=== PATIENT | female | born 1945 | race Caucasian/White ===

== ENCOUNTER 2016-10-16 13:19 | Inpatient (IN) | payer MEDICARE, MEDICAID ==
[2016-10-16] MEDS ORDERED: NORMAL SALINE 1000 ML 500 ML IV ONE (14:13)
--- NOTE | 2016-10-16 14:13 | ER Document Report ---
ED Respiratory Problem - General Mode of Arrival: Medic Information source: Patient TRAVEL OUTSIDE OF THE [place] IN LAST 30 DAYS: No - HPI Patient complains to provider of: Other - Difficulty breathing Associated symptoms: Other - See above <JESSIE GONZALES - Last Filed: 10/16/16 14:47> <HEBERTALIA SIDDIQI FORREST - Last Filed: 10/16/16 19:46> - General Chief Complaint: Breathing Difficulty Stated Complaint: DIFFICULTY BREATHING Notes: Patient is a 71 year old female, with a past medical history including A-fib and asthma, who presents to the emergency department via EMS complaining of trouble breathing onset today. Patient reports that she believes she has had fluid buildup which is causing her problem. Patient states she has been taking water pills regularly. Patient states that she had eaten less than normal yesterday, lots of water, and denies excess salt. Patient states she is not on home air. Patient denies fever. (JESSIE GONZALES) - Related Data Allergies/Adverse Reactions: No Known Allergies Allergy (Verified 10/09/14 09:34) Past Medical History - General Information source: Patient - Social History Smoking Status: Unknown if Ever Smoked Family History: Reviewed & Not Pertinent, DM, Hypertension, Other - a-fib - Past Medical History Cardiac Medical History: Reports: Hx Atrial Fibrillation, Hx Congestive Heart Failure, Hx Hypercholesterolemia, Hx Hypertension Pulmonary Medical History: Reports: Hx Asthma, Hx COPD Endocrine Medical History: Reports: Hx Diabetes Mellitus Type 2, Hx Hypothyroidism GI Medical History: Reports: Hx Gastroesophageal Reflux Disease, Hx Hiatal Hernia Musculoskeltal Medical History: Reports Hx Arthritis Past Surgical History: Reports: Hx Hysterectomy, Hx Tonsillectomy - Immunizations Hx Diphtheria, Pertussis, Tetanus Vaccination: Yes Hx Pneumococcal Vaccination: 09/20/11 <JESSIE GONZALES - Last Filed: 10/16/16 14:47> Review of Systems - Review of Systems Constitutional: denies: Fever EENT: No symptoms reported Cardiovascular: No symptoms reported Respiratory: See HPI, Other - Difficulty breathing Gastrointestinal: No symptoms reported Genitourinary: No symptoms reported Female Genitourinary: No symptoms reported Musculoskeletal: No symptoms reported Skin: No symptoms reported Hematologic/Lymphatic: No symptoms reported Neurological/Psychological: No symptoms reported -: Yes All other systems reviewed and negative <JESSIE GONZALES - Last Filed: 10/16/16 14:47> Physical Exam - Vital signs Interpretation: Tachycardic - General General appearance: Appears well, Alert - HEENT Head: Normocephalic, Atraumatic - Respiratory Respiratory status: No respiratory distress Chest status: Nontender Breath sounds: Decreased air movement - bilaterally, Wheezing - bilaterally Chest palpation: Normal - Cardiovascular Rhythm: Irregularly irregular, Tachycardia Heart sounds: Normal auscultation Murmur: No - Abdominal Inspection: Normal Distension: No distension Bowel sounds: Normal Tenderness: Nontender Organomegaly: No organomegaly - Back Back: Normal, Nontender - Extremities General upper extremity: Normal inspection, Nontender, Normal color, Normal ROM , Normal temperature General lower extremity: Normal inspection, Nontender, Normal color, Normal ROM , Normal temperature - Neurological Neuro grossly intact: Yes Cognition: Normal Orientation: AAOx4 Teresa Coma Scale Eye Opening: Spontaneous Teresa Coma Scale Verbal: Oriented Enterprise Coma Scale Motor: Obeys Commands Enterprise Coma Scale Total: 15 Speech: Normal Motor strength normal: LUE, RUE, LLE, RLE - Psychological Associated symptoms: Normal affect, Normal mood - Skin Skin Temperature: Warm Skin Moisture: Dry Skin Color: Normal <JESSIE GONZALES - Last Filed: 10/16/16 14:47> Course - Laboratory Result Diagrams: 10/16/16 14:11 10/16/16 14:11 <JESSIE GONZALES - Last Filed: 10/16/16 14:47> - Laboratory Result Diagrams: 10/16/16 14:11 10/16/16 14:11 <TALIA PRETTY - Last Filed: 10/16/16 19:46> - Re-evaluation Re-evalutation: 10/16/16 Patient is a 71-year-old female who comes in with respiratory distress. Patient is wheezing and also has some decreased breath sounds and crackles at her bases. Mixed COPD CHF exacerbation. Patient was given nebulizer treatment and Solu-Medrol with good response. She is hypoxic off of oxygen which she does not have at home. Patient has been somewhat hypotensive so will hold nitroglycerin and Lasix at this time. Patient will be referred to the hospitalist service for admission due to her hypoxemia. Stable at time of admission. Understands agrees with plan. Grateful for care. (TALIA PRETTY) - Vital Signs Vital signs: Temp Pulse Resp BP Pulse Ox 98.5 F 100 16 111/76 98 10/16/16 14:00 10/16/16 14:00 10/16/16 19:02 10/16/16 19:02 10/16/16 19:02 (TALIA PRETYT) - Laboratory Laboratory results interpreted by me: 10/16/16 10/16/16 10/16/16 14:11 14:11 14:11 RDW 17.4 H Monocytes % 13.2 H PT 17.4 H VBG pH Sodium 132.5 L Chloride 92 L BUN 36 H Creatinine 1.36 H Est GFR ( Amer) 47 L Est GFR (Non-Af Amer) 38 L Creatine Kinase NT-Pro-B Natriuret Pep 10/16/16 10/16/16 10/16/16 14:11 14:11 14:43 RDW Monocytes % PT VBG pH 7.44 H Sodium Chloride BUN Creatinine Est GFR ( Amer) Est GFR (Non-Af Amer) Creatine Kinase 25 L NT-Pro-B Natriuret Pep 3740 H (TALIA PRETTY) Critical Care Note - Critical Care Note Total time excluding time spent on procedures (mins): 35 - evaluation and management of respiratory distress with multiple re-evaluations, coordination of admission, counseling of patient <TALIA PRETTY - Last Filed: 10/16/16 19:46> Discharge <JESSIE GONZALES - Last Filed: 10/16/16 14:47> - Discharge Admitting Provider: [facility] Unit Admitted: IMCU <TALIA PRETTY - Last Filed: 10/16/16 19:46> - Discharge Clinical Impression: Respiratory distress, Hypoxia, COPD exacerbation Acute congestive heart failure Qualifiers: Congestive heart failure type: unspecified congestive heart failure type Qualified Code(s): I50.9 - Heart failure, unspecified Condition: Stable Disposition: ADMITTED INPATIENT Scribe Attestation: 10/16/16 19:46 I personally performed the services described in the documentation, reviewed and edited the documentation which was dictated to the scribe in my presence, and it accurately records my words and actions. (TALIA PRETTY) Scribe Documentation - Scribe Written by Scribe:: Jessie Gonzales 10/16/16 acting as scribe for :: Harper <JESSIE GONZALES - Last Filed: 10/16/16 14:47>
[2016-10-16] MEDS ORDERED: IPRATROPIUM/ALBUTEROL 0.5-2.5 MG/3 ML AMPUL NEB ONE (14:14)
[2016-10-16] MEDS ORDERED: METHYLPREDNISOLONE INJ 125 MG/2 ML SDV IV ONE (14:14)
[2016-10-16 14:31] LABS: PROTHROMBIN TIME 17.4 SEC (11.4-15.4)
[2016-10-16 14:34] LABS: ABSOLUTE EOSINOPHILS # (AUTO) 0.3 10^3/uL (0.0-0.6); ABSOLUTE LYMPHOCYTES (AUTO) 1.1 10^3/uL (0.5-4.7); ABSOLUTE MONOCYTES (AUTO) 0.9 10^3/uL (0.1-1.4); ABSOLUTE NEUT (AUTO) 4.8 10^3/uL (1.7-8.2); BASOPHILS % (AUTO) 0.6 % (0-2); EOSINOPHILS % (AUTO) 3.5 % (0-6); HEMATOCRIT 38.3 % (36.0-47.0); HGB HCT DIFFERENCE 0.7; LYMPHOCYTES % (AUTO) 15.8 % (13-45); MEAN CORPUSCULAR HGB CONC 34.1 g/dL (32.0-36.0); MEAN CORPUSCULAR VOLUME 85 fl (80-97); MONOCYTES % (AUTO) 13.2 % (3-13); RED BLOOD COUNT 4.51 10^6/uL (3.72-5.28); RED CELL DISTRIBUTION WIDTH 17.4 % (11.5-14.0); SEGMENTED NEUTROPHILS % (AUTO) 66.9 % (42-78); WHITE BLOOD COUNT 7.2 10^3/uL (4.0-10.5)
[2016-10-16 14:48] LABS: ALANINE AMINOTRANSFERASE 31 U/L (9-52); ALBUMIN 4.2 g/dL (3.5-5.0); ALKALINE PHOSPHATASE 53 U/L (38-126); ANION GAP 15 (5-19); ASPARTATE AMINO TRANSFERASE 27 U/L (14-36); BILIRUBIN,TOTAL 0.8 mg/dL (0.2-1.3); BLOOD UREA NITROGEN 36 mg/dL (7-20); CALCIUM 9.6 mg/dL (8.4-10.2); CARBON DIOXIDE 26 mmol/L (22-30); CHLORIDE 92 mmol/L (98-107); CREATININE RESULT 1.36 mg/dL (0.52-1.25); GLUCOSE 108 mg/dL (75-110); POTASSIUM 4.3 mmol/L (3.6-5.0); SODIUM 132.5 mmol/L (137-145); TOTAL PROTEIN 7.2 g/dL (6.3-8.2)
[2016-10-16 15:01] LABS: VENOUS BLOOD BASE EXCESS 1.5 mmol/L; VENOUS BLOOD HCO3 25.6 mmol/L (20-32); VENOUS BLOOD PCO2 38.6 mmHg (35-63); VENOUS BLOOD PH 7.44 (7.30-7.42)
[2016-10-16 15:18] LABS: APPEARANCE,URINE SLIGHTLY-CLOUDY; BILIRUBIN,URINE NEGATIVE (NEGATIVE); GLUCOSE, URINE NEGATIVE (NEGATIVE); KETONES,URINE NEGATIVE (NEGATIVE); LEUKOCYTE ESTERASE,URINE NEGATIVE (NEGATIVE); NITRITE,URINE NEGATIVE (NEGATIVE); PROTEIN,URINE NEGATIVE (NEGATIVE); URINE SPECIFIC GRAVITY 1.005; UROBILINOGEN,URINE NEGATIVE mg/dL (<2.0)
[2016-10-16 15:21] LABS: CREATINE KINASE MB 0.24 ng/mL (<4.55)
[2016-10-16 15:23] LABS: TROPONIN I < 0.012 ng/mL
[2016-10-16] MEDS ORDERED: FUROSEMIDE INJ/PF 20 MG/2 ML SDV IV ONE (15:29)
[2016-10-16] MEDS ORDERED: NITROGLYCERIN 2% OINTMENT 1 GM PACKET TP ONE (15:30)
[2016-10-16] MEDS ORDERED: ACETAMINOPHEN 325 MG TABLET PO PRN (16:23)
--- NOTE | 2016-10-16 16:43 | PDOC H&P ---
History of Present Illness Admission Date/PCP: ROSARIO Umaña Patient complains of: Shortness of breath History of Present Illness: NELSON CUNNINGHAM is a 71 year old female with past medical history of atrial fibrillation, COPD, CHF/LVDD, CKD 3, DM presents to the emergency department with several week history of increasing shortness of breath, orthopnea. She denies chest pain. Medications listed below have not been verified at the time of this documentation. Past Medical History Cardiac Medical History: Reports: Atrial Fibrillation, Congestive Heart Failure , Hyperlipidema, Hypertension Pulmonary Medical History: Reports: Asthma, Chronic Obstructive Pulmonary Disease (COPD) Endocrine Medical History: Reports: Diabetes Mellitus Type 2, Hypothyroidism Renal/ Medical History: Reports: Chronic Kidney Disease - Stage III GI Medical History: Reports: Gastroesophageal Reflux Disease, Hiatal Hernia, Other - Irritable bowel syndrome Musculoskeltal Medical History: Reports: Arthritis Past Surgical History Past Surgical History: Reports: Hysterectomy, Tonsillectomy Social History Information Source: Patient Lives with: Alone Smoking Status: Never Smoker Frequency of Alcohol Use: None Hx Recreational Drug Use: No Drugs: None Hx Prescription Drug Abuse: No - Advance Directive Resuscitation Status: Full Code Family History Family History: DM, Hypertension, Other - a-fib Parental Family History Reviewed: Yes Children Family History Reviewed: Yes Sibling(s) Family History Reviewed.: Yes Medication/Allergy Home Medications: Fenofibrate Nanocrystallized [Fenofibrate] 48 mg PO DAILY #30 tablet 10/14/14 Glyburide [Diabeta 2.5 mg Tablet] 2.5 mg PO DAILY #30 tablet 10/14/14 Isosorbide Mononitrate [Isosorbide Mononitrate ER] 30 mg PO DAILY #30 tab.er.24h 10/14/14 Levothyroxine Sodium 137 mcg PO DAILY #30 tablet 10/14/14 Mometasone Furoate [Nasonex] 17 gm NS DAILY #1 spray.pump 10/14/14 Montelukast Sodium [Singulair 10 mg Tablet] 10 mg PO QHS #30 tablet 10/14/14 Potassium Chloride 10 meq PO DAILY #30 capsule.er 10/14/14 Valsartan/Hydrochlorothiazide [Valsartan-Hctz 160-25 mg Tab] 1 each PO DAILY # 30 tablet 10/14/14 Albuterol Sulfate [Ventolin Hfa] 1 - 2 puff IH Q4 PRN 02/09/15 Carvedilol 6.25 mg PO BID 02/09/15 Diltiazem HCl [Cartia Xt] 180 mg PO DAILY 08/26/16 Furosemide [Lasix 40 mg Tablet] 40 mg PO QAM #30 tablet 08/28/16 Warfarin Sodium [Coumadin 7.5 mg Tablet] 7.5 mg PO QHS tablet 08/28/16 Allergies/Adverse Reactions: No Known Allergies Allergy (Verified 10/09/14 09:34) Review of Systems Constitutional: PRESENT: fatigue. ABSENT: chills, fever(s), headache(s), weight gain, weight loss Eyes: ABSENT: visual disturbances Ears: ABSENT: hearing changes Cardiovascular: PRESENT: dyspnea on exertion, orthropnea. ABSENT: chest pain, edema, palpitations Respiratory: PRESENT: dyspnea. ABSENT: cough, hemoptysis Gastrointestinal: ABSENT: abdominal pain, constipation, diarrhea, hematemesis, hematochezia, nausea, vomiting Genitourinary: ABSENT: dysuria, hematuria Musculoskeletal: ABSENT: joint swelling Integumentary: ABSENT: rash, wounds Neurological: ABSENT: abnormal gait, abnormal speech, confusion, dizziness, focal weakness, syncope Psychiatric: ABSENT: anxiety, depression, homidical ideation, suicidal ideation Endocrine: ABSENT: cold intolerance, heat intolerance, polydipsia, polyuria Hematologic/Lymphatic: ABSENT: easy bleeding, easy bruising Physical Exam Vital Signs: Temp Pulse Resp BP Pulse Ox 98.5 F 100 16 94/49 L 95 10/16/16 14:00 10/16/16 14:00 10/16/16 16:11 10/16/16 16:15 10/16/16 16:15 PHYSICAL EXAM: GENERAL: Appears well, no acute distress HEENT: Normocephalic, no scleral icterus, conjunctiva clear, EOEM intact, PERRLA , moist mucous membranes NECK: trachea midline, no thyromegally RESPIRATORY: Crackles heard throughout all anterior lung talbert bilaterally CARDIAC: Tachycardic, irregular ABDOMEN: Soft, no distension, no tenderness, no guarding, normal bowel sounds, negative Peña sign RECTAL: deferred : deferred EXTREMITIES: No edema, cyanosis, clubbing MUSCULOSKELETAL: No joint swelling or deformity VASCULAR: normal peripheral pulses NEUROLOGIC: Alert, oriented to person/place/time, normal speech, cranial nerves grossly intact, 5/5 strength in all extremities, tactile sensation intact in all extremities SKIN: No rash, no wounds, no worrisome skin lesions PSYCHIATRIC: Normal mood, normal affect Results Laboratory Results: 10/16/16 14:11 10/16/16 14:11 10/16/16 10/16/16 10/16/16 14:11 14:11 14:43 WBC 7.2 RBC 4.51 Hgb 13.0 Hct 38.3 MCV 85 MCH 29.0 MCHC 34.1 RDW 17.4 H Plt Count 193 Seg Neutrophils % 66.9 Lymphocytes % 15.8 Monocytes % 13.2 H Eosinophils % 3.5 Basophils % 0.6 Absolute Neutrophils 4.8 Absolute Lymphocytes 1.1 Absolute Monocytes 0.9 Absolute Eosinophils 0.3 Absolute Basophils 0.0 VBG pH VBG pCO2 VBG HCO3 VBG Base Excess Sodium 132.5 L Potassium 4.3 Chloride 92 L Carbon Dioxide 26 Anion Gap 15 BUN 36 H Creatinine 1.36 H Est GFR ( Amer) 47 L Est GFR (Non-Af Amer) 38 L Glucose 108 Lactic Acid 1.4 Calcium 9.6 Total Bilirubin 0.8 AST 27 ALT 31 Alkaline Phosphatase 53 Total Protein 7.2 Albumin 4.2 Urine Color Urine Appearance Urine pH Ur Specific Brenham Urine Protein Urine Glucose (UA) Urine Ketones Urine Blood Urine Nitrite Ur Leukocyte Esterase Urine RBC (Auto) 10/16/16 10/16/16 14:43 15:05 WBC RBC Hgb Hct MCV MCH MCHC RDW Plt Count Seg Neutrophils % Lymphocytes % Monocytes % Eosinophils % Basophils % Absolute Neutrophils Absolute Lymphocytes Absolute Monocytes Absolute Eosinophils Absolute Basophils VBG pH 7.44 H VBG pCO2 38.6 VBG HCO3 25.6 VBG Base Excess 1.5 Sodium Potassium Chloride Carbon Dioxide Anion Gap BUN Creatinine Est GFR ( Amer) Est GFR (Non-Af Amer) Glucose Lactic Acid Calcium Total Bilirubin AST ALT Alkaline Phosphatase Total Protein Albumin Urine Color YELLOW Urine Appearance SLIGHTLY-CLOUDY Urine pH 6.0 Ur Specific Bren[place] 1.005 Urine Protein NEGATIVE Urine Glucose (UA) NEGATIVE Urine Ketones NEGATIVE Urine Blood NEGATIVE Urine Nitrite NEGATIVE Ur Leukocyte Esterase NEGATIVE Urine RBC (Auto) 0 10/16/16 10/16/16 14:11 14:11 Creatine Kinase 25 L CK-MB (CK-2) 0.24 Troponin I < 0.012 NT-Pro-B Natriuret Pep 3740 H EKG Comments: Atrial fibrillation, heart rate 130 Impressions: Chest X-Ray 10/16/16 14:14 IMPRESSION: CARDIAC ENLARGEMENT. VASCULAR CONGESTION. Assessment & Plan - Diagnosis (1) Hypoxia Is this a current diagnosis for this admission?: YesPlan: Continue oxygen supplementation to maintain O2 sat greater than 95%. (2) Acute diastolic CHF (congestive heart failure) Is this a current diagnosis for this admission?: YesPlan: Admit patient to IMCU. Start Lasix 20 mg IV every 12 hours. Follow-up chest x- ray and proBNP level. Continue Coreg, but decrease dose to 3.125 mg twice daily. Hold valsartan for now secondary to renal dysfunction and hypotension. (3) Asthma Is this a current diagnosis for this admission?: YesPlan: When necessary albuterol nebulizer treatments. Continue Symbicort. (4) Atrial fibrillation with RVR Is this a current diagnosis for this admission?: YesPlan: Continue Cardizem CD 180 mg daily. (5) Diabetes mellitus type 2 in obese Is this a current diagnosis for this admission?: YesPlan: Continue glipizide ER 2.5 mg daily. (6) Hypothyroidism Qualifiers: Hypothyroidism type: acquired Qualified Code(s): E03.9 - Hypothyroidism, unspecified Is this a current diagnosis for this admission?: YesPlan: Continue Synthroid 125 g daily. (7) HTN (hypertension) Qualifiers: Hypertension type: essential hypertension Qualified Code(s): I10 - Essential (primary) hypertension Is this a current diagnosis for this admission?: YesPlan: Patient is currently hypotensive. Hold valsartan HCT. Decrease Coreg to 3.125 mg twice daily. Continue Cardizem CD 180 mg daily for this as well as atrial fibrillation. - Time Time Spent: Greater than 70 Minutes - Inpatient Certification Based on my medical assessment, after consideration of the patient's comorbidities, presenting symptoms, or acuity I expect that the services needed warrant INPATIENT care.: Yes I certify that my determination is in accordance with my understanding of Medicare's requirements for reasonable and necessary INPATIENT services [42 CFR 412.3e].: Yes Medical Necessity: Need Close Monitoring Due to Risk of Patient Decompensation, Need For Continuous Telemetry Monitoring
--- NOTE | 2016-10-16 18:47 | EKG REPORT ---
SEVERITY:- ABNORMAL ECG - ATRIAL FIBRILLATION, V-RATE 96-158 LOW VOLTAGE IN FRONTAL LEADS BORDERLINE PROLONGED QT INTERVAL : Confirmed by: Morales Munson MD 16-Oct-2016 18:47:25
[2016-10-16] MEDS: CARVEDILOL 3.125 MG TABLET PO SCH (18:59)
[2016-10-16] MEDS: APIXABAN 5 MG TABLET PO SCH (18:59)
[2016-10-16] MEDS ORDERED: BUDESONIDE/FORMOTEROL 80-4.5 MCG 60 PUFF/6.9 GM MDI IH ONE (22:48)
[2016-10-16] MEDS: FUROSEMIDE INJ/PF 20 MG/2 ML SDV IV SCH (22:49)
[2016-10-16] MEDS: BUDESONIDE/FORMOTEROL 80-4.5 MCG 60 PUFF/6.9 GM MDI IH SCH (22:55)
[2016-10-17 04:56] LABS: ABSOLUTE LYMPHOCYTES (AUTO) 0.9 10^3/uL (0.5-4.7); ABSOLUTE MONOCYTES (AUTO) 0.2 10^3/uL (0.1-1.4); ABSOLUTE NEUT (AUTO) 5.2 10^3/uL (1.7-8.2); BASOPHILS % (AUTO) 0.2 % (0-2); EOSINOPHILS % (AUTO) 0.1 % (0-6); HEMATOCRIT 37.7 % (36.0-47.0); HEMOGLOBIN 12.9 g/dL (12.0-15.5); LYMPHOCYTES % (AUTO) 14.3 % (13-45); MEAN CORPUSCULAR HGB CONC 34.1 g/dL (32.0-36.0); MEAN CORPUSCULAR VOLUME 85 fl (80-97); MONOCYTES % (AUTO) 2.8 % (3-13); RED BLOOD COUNT 4.44 10^6/uL (3.72-5.28); SEGMENTED NEUTROPHILS % (AUTO) 82.6 % (42-78); WHITE BLOOD COUNT 6.3 10^3/uL (4.0-10.5)
[2016-10-17] MEDS: CARVEDILOL 3.125 MG TABLET PO SCH ×2 (05:47→17:19)
--- NOTE | 2016-10-17 08:05 | EKG REPORT ---
SEVERITY:- ABNORMAL ECG - ATRIAL FIBRILLATION MULTIFORM VENTRICULAR PREMATURE COMPLEXES LOW VOLTAGE THROUGHOUT : Confirmed by: Morales Munson MD 17-Oct-2016 08:04:11
[2016-10-17] MEDS: FUROSEMIDE INJ/PF 20 MG/2 ML SDV IV SCH ×2 (09:09→21:15)
[2016-10-17] MEDS: GLYBURIDE 2.5 MG TABLET PO SCH (09:10)
[2016-10-17] MEDS: LEVOTHYROXINE SODIUM 0.025 MG TABLET PO SCH (09:10)
[2016-10-17] MEDS: LEVOTHYROXINE SODIUM 0.1 MG TABLET PO SCH (09:10)
[2016-10-17] MEDS: APIXABAN 5 MG TABLET PO SCH ×2 (09:10→17:19)
[2016-10-17] MEDS: POTASSIUM CHLORIDE 10 MEQ TABLET.SA PO SCH (09:11)
[2016-10-17] MEDS: FENOFIBRATE NANOCRYSTALLIZED 48 MG TABLET PO SCH (09:11)
[2016-10-17] MEDS: BUDESONIDE/FORMOTEROL 80-4.5 MCG 60 PUFF/6.9 GM MDI IH SCH ×2 (09:12→21:15)
[2016-10-17] MEDS ORDERED: DILTIAZEM HCL 180 MG CAPSULE.CR PO SCH (10:00)
[2016-10-17] MEDS ORDERED: LEVOTHYROXINE SODIUM 0.05 MG TABLET PO SCH (10:00)
[2016-10-17] MEDS ORDERED: (PENDING PHARMACY ID) (Potassium Chloride [Potassium Chloride] 10 MEQ) PO SCH (10:00)
[2016-10-17] MEDS ORDERED: (PENDING PHARMACY ID) (Diltiazem Hcl [Cartia Xt] 180 MG) PO SCH (10:00)
--- NOTE | 2016-10-17 13:29 | PDOC PROGRESS REPORT ---
Subjective Progress Note for:: 10/17/16 Subjective:: Patient has continued dyspnea with minimal exertion. She has a continued cough. Patient denies fever, chills, headache, new focal weakness, chest pain, abdominal pain, nausea, vomiting, diarrhea, constipation. Physical Exam Vital Signs: Temp Pulse Resp BP Pulse Ox 97.3 F 106 H 24 H 97/54 L 93 10/17/16 07:42 10/17/16 07:42 10/17/16 07:42 10/17/16 07:42 10/17/16 07:42 Intake & Output 10/16/16 10/17/16 10/18/16 06:59 06:59 06:59 Intake Total 505 Output Total 300 Balance 205 Weight 90.4 kg GENERAL: No acute distress HEENT: Conjunctiva clear, nonicteric, moist mucous membranes, no JVD, midline trachea RESPIRATORY: Bilateral crackles CARDIAC: Regular rate and rhythm, no murmurs/gallops/rubs ABDOMEN: Soft, nondistended, nontender, positive bowel sounds, no rebound, no guarding EXTREMETIES: No edema, cyanosis, clubbing NEUROLOGIC: Alert, oriented to person/place/time, CN's grossly intact, no focal deficits SKIN: No rash, wounds PSYCH: Normal mood, normal affect Results Laboratory Results: 10/17/16 04:18 10/17/16 10/17/16 10/17/16 04:18 04:18 04:18 WBC 6.3 RBC 4.44 Hgb 12.9 Hct 37.7 MCV 85 MCH 29.0 MCHC 34.1 RDW 17.0 H Plt Count 170 Seg Neutrophils % 82.6 H Lymphocytes % 14.3 Monocytes % 2.8 L Eosinophils % 0.1 Basophils % 0.2 Absolute Neutrophils 5.2 Absolute Lymphocytes 0.9 Absolute Monocytes 0.2 Absolute Eosinophils 0.0 Absolute Basophils 0.0 Magnesium 2.3 TSH 0.49 Impressions: Chest X-Ray 10/17/16 06:00 IMPRESSION: CARDIAC ENLARGEMENT. VASCULAR CONGESTION. GIVEN DIFFERENCE IN TECHNIQUE THERE IS VERY LITTLE CHANGE. Assessment & Plan - Diagnosis (1) Hypoxia Is this a current diagnosis for this admission?: YesPlan: Continue oxygen supplementation to maintain O2 sat greater than 95%. (2) Acute diastolic CHF (congestive heart failure) Is this a current diagnosis for this admission?: YesPlan: Continue Lasix 20 mg IV every 12 hours. Follow-up chest x-ray and proBNP level. Continue Coreg 3.125 mg twice daily. Hold valsartan for now secondary to renal dysfunction and hypotension. (3) Asthma Is this a current diagnosis for this admission?: YesPlan: When necessary albuterol nebulizer treatments. Continue Symbicort. (4) Atrial fibrillation with RVR Is this a current diagnosis for this admission?: YesPlan: Continue Cardizem CD 180 mg daily. Continue Eliquis. (5) Diabetes mellitus type 2 in obese Is this a current diagnosis for this admission?: YesPlan: Continue glipizide ER 2.5 mg daily. (6) Hypothyroidism Qualifiers: Hypothyroidism type: acquired Qualified Code(s): E03.9 - Hypothyroidism, unspecified Is this a current diagnosis for this admission?: YesPlan: Continue Synthroid 125 g daily. (7) HTN (hypertension) Qualifiers: Hypertension type: essential hypertension Qualified Code(s): I10 - Essential (primary) hypertension Is this a current diagnosis for this admission?: YesPlan: Patient is currently hypotensive. Hold valsartan HCT. Decreased Coreg to 3.125 mg twice daily. Increase Cardizem CD to 120 mg daily. - Time Time Spent with patient: 35 or more minutes Anticipated discharge: Home with Homehealth Within: within 72 hours
[2016-10-17] MEDS: ALBUTEROL SULFATE 0.083% NEB 2.5 MG/3 ML AMPUL NEB PRN (21:02)
[2016-10-18] MEDS: CARVEDILOL 3.125 MG TABLET PO SCH ×2 (06:50→16:50)
[2016-10-18 07:01] LABS: ABSOLUTE LYMPHOCYTES (AUTO) 1.6 10^3/uL (0.5-4.7); ABSOLUTE NEUT (AUTO) 12.9 10^3/uL (1.7-8.2); BASOPHILS % (AUTO) 0.2 % (0-2); EOSINOPHILS % (AUTO) 0.2 % (0-6); HEMATOCRIT 36.9 % (36.0-47.0); HEMOGLOBIN 12.2 g/dL (12.0-15.5); HGB HCT DIFFERENCE -0.3; LYMPHOCYTES % (AUTO) 10.5 % (13-45); MEAN CORPUSCULAR HEMOGLOBIN 28.2 pg (27.0-33.4); MEAN CORPUSCULAR HGB CONC 33.2 g/dL (32.0-36.0); MEAN CORPUSCULAR VOLUME 85 fl (80-97); MONOCYTES % (AUTO) 6.5 % (3-13); RED BLOOD COUNT 4.34 10^6/uL (3.72-5.28); RED CELL DISTRIBUTION WIDTH 16.8 % (11.5-14.0); SEGMENTED NEUTROPHILS % (AUTO) 82.6 % (42-78)
[2016-10-18 07:10] LABS: WHITE BLOOD COUNT 15.6 10^3/uL (4.0-10.5)
[2016-10-18 07:28] LABS: ANION GAP 13 (5-19); BLOOD UREA NITROGEN 49 mg/dL (7-20); CALCIUM 9.5 mg/dL (8.4-10.2); CARBON DIOXIDE 27 mmol/L (22-30); CHLORIDE 95 mmol/L (98-107); CREATININE RESULT 1.16 mg/dL (0.52-1.25); GLUCOSE 140 mg/dL (75-110); POTASSIUM 4.3 mmol/L (3.6-5.0); SODIUM 134.7 mmol/L (137-145)
--- NOTE | 2016-10-18 09:10 | PDOC PROGRESS REPORT ---
Subjective Progress Note for:: 10/18/16 Subjective:: Patient has continued dyspnea with minimal exertion, but she feels this is generally improving. Patient denies fever, chills, headache, new focal weakness , chest pain, abdominal pain, nausea, vomiting, diarrhea, constipation. Physical Exam Vital Signs: Temp Pulse Resp BP Pulse Ox 97.4 F 80 20 108/55 L 94 10/18/16 07:33 10/18/16 07:33 10/18/16 07:33 10/18/16 07:33 10/18/16 07:33 Intake & Output 10/17/16 10/18/16 10/19/16 06:59 06:59 06:59 Intake Total 505 1865 Output Total 300 Balance 205 1865 Weight 90.4 kg 92 kg GENERAL: No acute distress HEENT: Conjunctiva clear, nonicteric, moist mucous membranes, no JVD, midline trachea RESPIRATORY: Bilateral crackles CARDIAC: Irregular rhythm, normal rate ABDOMEN: Soft, nondistended, nontender, positive bowel sounds, no rebound, no guarding EXTREMETIES: No edema, cyanosis, clubbing NEUROLOGIC: Alert, oriented to person/place/time, CN's grossly intact, no focal deficits SKIN: No rash, wounds PSYCH: Normal mood, normal affect Results Laboratory Results: 10/18/16 06:21 10/18/16 06:21 10/18/16 10/18/16 06:21 06:21 WBC 15.6 H D RBC 4.34 Hgb 12.2 Hct 36.9 MCV 85 MCH 28.2 MCHC 33.2 RDW 16.8 H Plt Count 188 Seg Neutrophils % 82.6 H Lymphocytes % 10.5 L Monocytes % 6.5 Eosinophils % 0.2 Basophils % 0.2 Absolute Neutrophils 12.9 H Absolute Lymphocytes 1.6 Absolute Monocytes 1.0 Absolute Eosinophils 0.0 Absolute Basophils 0.0 Sodium 134.7 L Potassium 4.3 Chloride 95 L Carbon Dioxide 27 Anion Gap 13 BUN 49 H Creatinine 1.16 Est GFR ( Amer) 56 L Est GFR (Non-Af Amer) 46 L Glucose 140 H Calcium 9.5 10/18/16 06:21 NT-Pro-B Natriuret Pep 2700 H Impressions: Chest X-Ray 10/18/16 06:00 IMPRESSION: Stable moderate to marked cardiomegaly Assessment & Plan - Diagnosis (1) Hypoxia Is this a current diagnosis for this admission?: YesPlan: Resolved. O2 sat 94% on room air today. (2) Acute diastolic CHF (congestive heart failure) Is this a current diagnosis for this admission?: YesPlan: Continue Lasix 20 mg IV every 12 hours. Follow-up chest x-ray and proBNP level. Continue Coreg 3.125 mg twice daily. Hold valsartan for now secondary to renal dysfunction and hypotension. Monitor strict I/O, daily weight. Patient education on CHF. Transition to acute to follow patient after discharge. (3) Asthma Is this a current diagnosis for this admission?: Yes (4) Atrial fibrillation with RVR Is this a current diagnosis for this admission?: YesPlan: Review of telemetry monitoring shows that patient has been generally heart rate controlled over the past 24 hours. Continue Cardizem CD 180 mg daily. Continue Eliquis. (5) Diabetes mellitus type 2 in obese Is this a current diagnosis for this admission?: YesPlan: Continue glipizide ER 2.5 mg daily. (6) Hypothyroidism Qualifiers: Hypothyroidism type: acquired Qualified Code(s): E03.9 - Hypothyroidism, unspecified Is this a current diagnosis for this admission?: YesPlan: Continue Synthroid 125 g daily. TSH normal. (7) HTN (hypertension) Qualifiers: Hypertension type: essential hypertension Qualified Code(s): I10 - Essential (primary) hypertension Is this a current diagnosis for this admission?: YesPlan: Continue to hold valsartan HCT secondary to low blood pressures. Decreased Coreg to 3.125 mg twice daily. Continue Cardizem CD to 120 mg daily. - Time Time Spent with patient: 25-34 minutes
[2016-10-18] MEDS: DILTIAZEM HCL 120 MG CAP.SR.24H PO SCH (09:49)
[2016-10-18] MEDS: POTASSIUM CHLORIDE 10 MEQ TABLET.SA PO SCH (09:51)
[2016-10-18] MEDS: GLYBURIDE 2.5 MG TABLET PO SCH (09:52)
[2016-10-18] MEDS: LEVOTHYROXINE SODIUM 0.1 MG TABLET PO SCH (09:52)
[2016-10-18] MEDS: LEVOTHYROXINE SODIUM 0.025 MG TABLET PO SCH (09:52)
[2016-10-18] MEDS: APIXABAN 5 MG TABLET PO SCH ×2 (09:52→16:51)
[2016-10-18] MEDS: FUROSEMIDE INJ/PF 20 MG/2 ML SDV IV SCH ×2 (09:53→22:11)
[2016-10-18] MEDS: FENOFIBRATE NANOCRYSTALLIZED 48 MG TABLET PO SCH (09:53)
[2016-10-18] MEDS: BUDESONIDE/FORMOTEROL 80-4.5 MCG 60 PUFF/6.9 GM MDI IH SCH ×2 (09:56→22:11)
[2016-10-18] MEDS: ALBUTEROL SULFATE 0.083% NEB 2.5 MG/3 ML AMPUL NEB PRN (11:32)
[2016-10-18] MEDS ORDERED: GLUCAGON,HUMAN RECOMB 1 MG INJ IM PRN (15:08)
[2016-10-18] MEDS ORDERED: DEXTROSE 40% GEL 15 GM TUBE PO PRN ×2 (15:08)
[2016-10-18] MEDS ORDERED: DEXTROSE 50%-WATER 25 GM/50 ML DISP.SYRIN IV PRN ×2 (15:08)
--- NOTE | 2016-10-18 15:11 | Progress Note ---
Provider Note Provider Note: ADDENDUM: Continued dyspnea, wheezing, elevated WBC. Add Levaquin, Solumedrol. Check CTA chest.
[2016-10-18] MEDS ORDERED: LEVOFLOXACIN 750 MG/D5W RTU 750 MG/150 ML RTUPB IV SCH (16:00)
[2016-10-18] MEDS: METHYLPREDNISOLONE INJ 40 MG/1 ML SDV IV SCH (16:50)
[2016-10-18] MEDS: INSULIN LISPRO 100 UNIT/ML 3 ML VIAL SUBCUT PRN (22:19)
[2016-10-19] MEDS: METHYLPREDNISOLONE INJ 40 MG/1 ML SDV IV SCH (02:22)
[2016-10-19] MEDS ORDERED: DILTIAZEM HCL INJ 25 MG/5 ML VIAL IV PRN (03:15)
[2016-10-19] MEDS: CARVEDILOL 3.125 MG TABLET PO SCH ×2 (05:51→17:23)
[2016-10-19 06:07] LABS: ABSOLUTE LYMPHOCYTES (AUTO) 1.3 10^3/uL (0.5-4.7); ABSOLUTE MONOCYTES (AUTO) 0.3 10^3/uL (0.1-1.4); BASOPHILS % (AUTO) 0.1 % (0-2); LYMPHOCYTES % (AUTO) 10.3 % (13-45); MEAN CORPUSCULAR HEMOGLOBIN 28.5 pg (27.0-33.4); MEAN CORPUSCULAR HGB CONC 33.3 g/dL (32.0-36.0); MEAN CORPUSCULAR VOLUME 86 fl (80-97); MONOCYTES % (AUTO) 2.7 % (3-13); RED BLOOD COUNT 4.55 10^6/uL (3.72-5.28); SEGMENTED NEUTROPHILS % (AUTO) 86.9 % (42-78); WHITE BLOOD COUNT 12.7 10^3/uL (4.0-10.5)
[2016-10-19 06:22] LABS: ANION GAP 11 (5-19); BLOOD UREA NITROGEN 50 mg/dL (7-20); CALCIUM 9.5 mg/dL (8.4-10.2); CARBON DIOXIDE 28 mmol/L (22-30); CHLORIDE 95 mmol/L (98-107); CREATININE RESULT 1.24 mg/dL (0.52-1.25); GLUCOSE 198 mg/dL (75-110); POTASSIUM 4.9 mmol/L (3.6-5.0); SODIUM 134.4 mmol/L (137-145)
[2016-10-19] MEDS: INSULIN LISPRO 100 UNIT/ML 3 ML VIAL SUBCUT PRN ×4 (07:55→23:14)
[2016-10-19] MEDS: LEVOTHYROXINE SODIUM 0.1 MG TABLET PO SCH (07:55)
[2016-10-19] MEDS: LEVOTHYROXINE SODIUM 0.025 MG TABLET PO SCH (07:55)
[2016-10-19] MEDS: GLYBURIDE 2.5 MG TABLET PO SCH (07:56)
--- NOTE | 2016-10-19 09:08 | PDOC PROGRESS REPORT ---
Subjective Progress Note for:: 10/19/16 Subjective:: Patient shortness of breath is much improved and approaching baseline. She has been weaned off oxygen. Patient denies fever, chills, headache, new focal weakness, chest pain, abdominal pain, nausea, vomiting, diarrhea, constipation. Physical Exam Vital Signs: Temp Pulse Resp BP Pulse Ox 97.6 F 115 H 20 125/68 95 10/19/16 08:09 10/19/16 08:09 10/19/16 08:09 10/19/16 08:09 10/19/16 08:09 Intake & Output 10/18/16 10/19/16 10/20/16 06:59 06:59 06:59 Intake Total 1864 2084 Balance 1864 2084 Weight 92 kg 92.3 kg GENERAL: No acute distress HEENT: Conjunctiva clear, nonicteric, moist mucous membranes, no JVD, midline trachea RESPIRATORY: Clear to auscultation bilaterally, no wheezes/rhonchi CARDIAC: Irregular rhythm, normal rate ABDOMEN: Soft, nondistended, nontender, positive bowel sounds, no rebound, no guarding EXTREMETIES: No edema, cyanosis, clubbing NEUROLOGIC: Alert, oriented to person/place/time, CN's grossly intact, no focal deficits SKIN: No rash, wounds PSYCH: Normal mood, normal affect Results Laboratory Results: 10/19/16 05:03 10/19/16 05:03 10/19/16 10/19/16 05:03 05:03 WBC 12.7 H RBC 4.55 Hgb 13.0 Hct 39.0 MCV 86 MCH 28.5 MCHC 33.3 RDW 17.0 H Plt Count 200 Seg Neutrophils % 86.9 H Lymphocytes % 10.3 L Monocytes % 2.7 L Eosinophils % 0.0 Basophils % 0.1 Absolute Neutrophils 11.0 H Absolute Lymphocytes 1.3 Absolute Monocytes 0.3 Absolute Eosinophils 0.0 Absolute Basophils 0.0 Sodium 134.4 L Potassium 4.9 Chloride 95 L Carbon Dioxide 28 Anion Gap 11 BUN 50 H Creatinine 1.24 Est GFR ( Amer) 52 L Est GFR (Non-Af Amer) 43 L Glucose 198 H Calcium 9.5 10/18/16 10/19/16 06:21 05:03 NT-Pro-B Natriuret Pep 2700 H 3340 H Impressions: Chest/Abdomen CTA 10/18/16 17:23 IMPRESSION: No acute cardiopulmonary findings. NO PULMONARY EMBOLI. Chronic interstitial changes in mediastinal lymphadenopathy. Chest X-Ray 10/19/16 06:00 IMPRESSION: No significant interval change. Cardiomegaly. No acute consolidations are identified Assessment & Plan - Diagnosis (1) Hypoxia Is this a current diagnosis for this admission?: YesPlan: Resolved. (2) Acute diastolic CHF (congestive heart failure) Is this a current diagnosis for this admission?: YesPlan: Echocardiogram from 08/27/2016 showed left ventricular diastolic dysfunction, normal systolic function, moderate MR, mild to moderate pulmonary hypertension. Clinically patient is much improved. Discontinue IV Lasix. Start Lasix 40 mg by mouth daily. Continue Coreg 3.125 mg twice daily. Patient is followed by Dr. Maria of cardiology as outpatient. (3) Asthma Is this a current diagnosis for this admission?: YesPlan: Much improved. Discontinue Solu-Medrol. Continue Symbicort. Continue albuterol. Continue Singulair. (4) Atrial fibrillation with RVR Is this a current diagnosis for this admission?: YesPlan: Review of telemetry monitoring shows that patient has been generally heart rate controlled over the past 48 hours. Continue Cardizem CD 120 mg daily. Continue Eliquis. Patient is followed by Dr. Maria of cardiology as an outpatient. (5) Diabetes mellitus type 2 in obese Is this a current diagnosis for this admission?: YesPlan: Patient is hyperglycemic secondary to steroids. Discontinue steroids. Continue glyburide. Check hemoglobin A1c. Continue sliding scale insulin coverage. (6) Hypothyroidism Qualifiers: Hypothyroidism type: acquired Qualified Code(s): E03.9 - Hypothyroidism, unspecified Is this a current diagnosis for this admission?: YesPlan: Continue Synthroid 125 g daily. TSH normal. (7) HTN (hypertension) Qualifiers: Hypertension type: essential hypertension Qualified Code(s): I10 - Essential (primary) hypertension Is this a current diagnosis for this admission?: YesPlan: Continue to hold valsartan HCT secondary to low blood pressures. Decreased Coreg to 3.125 mg twice daily. Continue Cardizem CD to 120 mg daily. - Time Time Spent with patient: 35 or more minutes
[2016-10-19] MEDS: FENOFIBRATE NANOCRYSTALLIZED 48 MG TABLET PO SCH (10:23)
[2016-10-19] MEDS: APIXABAN 5 MG TABLET PO SCH ×2 (10:23→17:23)
[2016-10-19] MEDS: POTASSIUM CHLORIDE 10 MEQ TABLET.SA PO SCH (10:24)
[2016-10-19] MEDS: DILTIAZEM HCL 120 MG CAP.SR.24H PO SCH (10:24)
[2016-10-19] MEDS: BUDESONIDE/FORMOTEROL 80-4.5 MCG 60 PUFF/6.9 GM MDI IH SCH ×2 (10:25→21:48)
[2016-10-19] MEDS: LEVOFLOXACIN 750 MG TABLET PO SCH (15:44)
[2016-10-20 04:49] LABS: HEMATOCRIT 39.4 % (36.0-47.0); HGB HCT DIFFERENCE -0.4; MEAN CORPUSCULAR HEMOGLOBIN 28.1 pg (27.0-33.4); MEAN CORPUSCULAR VOLUME 85 fl (80-97); RED BLOOD COUNT 4.63 10^6/uL (3.72-5.28); WHITE BLOOD COUNT 17.3 10^3/uL (4.0-10.5)
[2016-10-20 05:01] LABS: ANION GAP 12 (5-19); BLOOD UREA NITROGEN 47 mg/dL (7-20); CALCIUM 9.9 mg/dL (8.4-10.2); CARBON DIOXIDE 27 mmol/L (22-30); CHLORIDE 98 mmol/L (98-107); CREATININE RESULT 1.18 mg/dL (0.52-1.25); GLUCOSE 152 mg/dL (75-110); MAGNESIUM 2.6 mg/dL (1.6-2.3); POTASSIUM 4.6 mmol/L (3.6-5.0); SODIUM 136.8 mmol/L (137-145)
[2016-10-20 05:30] LABS: BAND NEUTROPHILS % (MANUAL) 2 % (3-5); BASOPHILS % (MANUAL) 0 % (0-2); EOSINOPHILS % (MANUAL) 1 % (0-6); LYMPHOCYTES % (MANUAL) 15 % (13-45); TOTAL CELLS COUNTED 100
[2016-10-20 05:31] LABS: ANISOCYTOSIS 1+; OVALOCYTES SLIGHT
[2016-10-20] MEDS: CARVEDILOL 3.125 MG TABLET PO SCH ×2 (06:04→17:32)
[2016-10-20] MEDS: DILTIAZEM HCL 120 MG CAP.SR.24H PO SCH (11:57)
[2016-10-20] MEDS: LEVOTHYROXINE SODIUM 0.025 MG TABLET PO SCH (11:58)
[2016-10-20] MEDS: GLYBURIDE 2.5 MG TABLET PO SCH (11:59)
[2016-10-20] MEDS: APIXABAN 5 MG TABLET PO SCH ×2 (11:59→17:31)
[2016-10-20] MEDS: POTASSIUM CHLORIDE 10 MEQ TABLET.SA PO SCH (11:59)
[2016-10-20] MEDS: FUROSEMIDE 40 MG TABLET PO SCH (11:59)
[2016-10-20] MEDS: LEVOTHYROXINE SODIUM 0.1 MG TABLET PO SCH (12:00)
[2016-10-20] MEDS: FENOFIBRATE NANOCRYSTALLIZED 48 MG TABLET PO SCH (12:01)
[2016-10-20] MEDS: BUDESONIDE/FORMOTEROL 80-4.5 MCG 60 PUFF/6.9 GM MDI IH SCH ×2 (12:02→21:44)
[2016-10-20] MEDS: ALBUTEROL SULFATE 0.083% NEB 2.5 MG/3 ML AMPUL NEB PRN (14:24)
--- NOTE | 2016-10-20 15:24 | PDOC PROGRESS REPORT ---
Subjective Progress Note for:: 10/20/16 Subjective:: Patient is generally improving but has persistent cough and mild shortness of breath. Patient denies fever, chills, headache, new focal weakness, chest pain, abdominal pain, nausea, vomiting, diarrhea, constipation. Physical Exam Vital Signs: Temp Pulse Resp BP Pulse Ox 97.3 F 80 16 109/47 L 96 10/20/16 11:04 10/20/16 14:24 10/20/16 14:24 10/20/16 11:04 10/20/16 14:24 Intake & Output 10/19/16 10/20/16 10/21/16 06:59 06:59 06:59 Intake Total 2085 1125 Output Total 400 Balance 2085 725 Weight 92.3 kg 92.3 kg GENERAL: No acute distress HEENT: Conjunctiva clear, nonicteric, moist mucous membranes, no JVD, midline trachea RESPIRATORY: Bilateral wheezes, good air excursion CARDIAC: Regular rate and rhythm, no murmurs/gallops/rubs ABDOMEN: Soft, nondistended, nontender, positive bowel sounds, no rebound, no guarding EXTREMETIES: No edema, cyanosis, clubbing NEUROLOGIC: Alert, oriented to person/place/time, CN's grossly intact, no focal deficits SKIN: No rash, wounds PSYCH: Normal mood, normal affect Results Laboratory Results: 10/20/16 04:26 10/20/16 04:26 10/20/16 10/20/16 04:26 04:26 WBC 17.3 H RBC 4.63 Hgb 13.0 Hct 39.4 MCV 85 MCH 28.1 MCHC 33.0 RDW 17.0 H Plt Count 201 Seg Neutrophils % Not Reportable Lymphocytes % Not Reportable Monocytes % Not Reportable Eosinophils % Not Reportable Basophils % Not Reportable Absolute Neutrophils Not Reportable Absolute Lymphocytes Not Reportable Absolute Monocytes Not Reportable Absolute Eosinophils Not Reportable Absolute Basophils Not Reportable Sodium 136.8 L Potassium 4.6 Chloride 98 Carbon Dioxide 27 Anion Gap 12 BUN 47 H Creatinine 1.18 Est GFR ( Amer) 55 L Est GFR (Non-Af Amer) 45 L Glucose 152 H Calcium 9.9 Magnesium 2.6 H 10/18/16 10/19/16 10/20/16 06:21 05:03 04:26 NT-Pro-B Natriuret Pep 2700 H 3340 H 3900 H Impressions: Chest/Abdomen CTA 10/18/16 17:23 IMPRESSION: No acute cardiopulmonary findings. NO PULMONARY EMBOLI. Chronic interstitial changes in mediastinal lymphadenopathy. Chest X-Ray 10/19/16 06:00 IMPRESSION: No significant interval change. Cardiomegaly. No acute consolidations are identified Assessment & Plan - Diagnosis (1) Hypoxia Is this a current diagnosis for this admission?: YesPlan: Now stable on room air. (2) Acute diastolic CHF (congestive heart failure) Is this a current diagnosis for this admission?: YesPlan: Echocardiogram from 08/27/2016 showed left ventricular diastolic dysfunction, normal systolic function, moderate MR, mild to moderate pulmonary hypertension. Clinically patient is much improved. Continue Lasix 40 mg by mouth daily. Continue Coreg 3.125 mg twice daily. Patient is followed by Dr. Maria of cardiology as outpatient. (3) Asthma Is this a current diagnosis for this admission?: YesPlan: Patient has persistent asthma/COPD exacerbation. Continue Levaquin 750 mg daily (day #2). Continue Symbicort, albuterol, and Singulair. (4) Atrial fibrillation with RVR Is this a current diagnosis for this admission?: YesPlan: Heart rate stable. Continue Cardizem CD 120 mg daily. Continue Eliquis. Patient is followed by Dr. Maria of cardiology as an outpatient. (5) Diabetes mellitus type 2 in obese Is this a current diagnosis for this admission?: YesPlan: Patient was hyperglycemic secondary to steroids. Discontinued systemic steroids. Continue glyburide. Hemoglobin A1c 7.0. Continue sliding scale insulin coverage. (6) Hypothyroidism Qualifiers: Hypothyroidism type: acquired Qualified Code(s): E03.9 - Hypothyroidism, unspecified Is this a current diagnosis for this admission?: YesPlan: Continue Synthroid 125 g daily. TSH normal. (7) HTN (hypertension) Qualifiers: Hypertension type: essential hypertension Qualified Code(s): I10 - Essential (primary) hypertension Is this a current diagnosis for this admission?: YesPlan: Continue to hold valsartan HCT secondary to low blood pressures. Decreased Coreg to 3.125 mg twice daily. Continue Cardizem CD to 120 mg daily. - Time Time Spent with patient: 25-34 minutes
[2016-10-20] MEDS: LEVOFLOXACIN 750 MG TABLET PO SCH (17:31)
[2016-10-20] MEDS: IPRATROPIUM/ALBUTEROL 120 PUFF/4 GM MDI IH SCH (17:33)
[2016-10-21] MEDS: IPRATROPIUM/ALBUTEROL 120 PUFF/4 GM MDI IH SCH ×4 (01:10→17:41)
[2016-10-21 04:42] LABS: HEMATOCRIT 39.2 % (36.0-47.0); HGB HCT DIFFERENCE -0.2; MEAN CORPUSCULAR HEMOGLOBIN 28.5 pg (27.0-33.4); MEAN CORPUSCULAR HGB CONC 33.2 g/dL (32.0-36.0); MEAN CORPUSCULAR VOLUME 86 fl (80-97); RED BLOOD COUNT 4.56 10^6/uL (3.72-5.28); RED CELL DISTRIBUTION WIDTH 16.8 % (11.5-14.0); WHITE BLOOD COUNT 13.8 10^3/uL (4.0-10.5)
[2016-10-21 05:05] LABS: ANION GAP 10 (5-19); BLOOD UREA NITROGEN 46 mg/dL (7-20); CALCIUM 9.3 mg/dL (8.4-10.2); CARBON DIOXIDE 29 mmol/L (22-30); CHLORIDE 99 mmol/L (98-107); CREATININE RESULT 1.33 mg/dL (0.52-1.25); GLUCOSE 85 mg/dL (75-110); POTASSIUM 4.5 mmol/L (3.6-5.0); SODIUM 138.3 mmol/L (137-145)
[2016-10-21 05:26] LABS: BAND NEUTROPHILS % (MANUAL) 3 % (3-5); BASOPHILS % (MANUAL) 0 % (0-2); EOSINOPHILS % (MANUAL) 2 % (0-6); LYMPHOCYTES % (MANUAL) 19 % (13-45); TOTAL CELLS COUNTED 100
[2016-10-21 05:28] LABS: TOXIC GRANULATION 2+
[2016-10-21 05:29] LABS: PLATELET CLUMPS PRESENT
[2016-10-21] MEDS: CARVEDILOL 3.125 MG TABLET PO SCH ×2 (06:37→17:40)
[2016-10-21] MEDS: ALBUTEROL SULFATE 0.083% NEB 2.5 MG/3 ML AMPUL NEB PRN ×2 (08:33→15:55)
[2016-10-21] MEDS: GLYBURIDE 2.5 MG TABLET PO SCH (08:51)
[2016-10-21] MEDS: FUROSEMIDE 40 MG TABLET PO SCH (08:51)
[2016-10-21] MEDS: LEVOTHYROXINE SODIUM 0.1 MG TABLET PO SCH (08:51)
[2016-10-21] MEDS: LEVOTHYROXINE SODIUM 0.025 MG TABLET PO SCH (08:51)
[2016-10-21] MEDS: FENOFIBRATE NANOCRYSTALLIZED 48 MG TABLET PO SCH (10:26)
[2016-10-21] MEDS: BUDESONIDE/FORMOTEROL 80-4.5 MCG 60 PUFF/6.9 GM MDI IH SCH ×2 (10:26→21:59)
[2016-10-21] MEDS: POTASSIUM CHLORIDE 10 MEQ TABLET.SA PO SCH (10:26)
[2016-10-21] MEDS: APIXABAN 5 MG TABLET PO SCH ×2 (10:27→17:41)
[2016-10-21] MEDS: DILTIAZEM HCL 120 MG CAP.SR.24H PO SCH (10:27)
[2016-10-21] MEDS: INSULIN LISPRO 100 UNIT/ML 3 ML VIAL SUBCUT PRN (13:21)
--- NOTE | 2016-10-21 14:21 | PDOC PROGRESS REPORT ---
Subjective Progress Note for:: 10/21/16 Subjective:: Patient states she has no shortness of breath. Patient denies fever, chills, headache, new focal weakness, chest pain, abdominal pain, nausea, vomiting, diarrhea, constipation. Physical Exam Vital Signs: Temp Pulse Resp BP Pulse Ox 97.7 F 81 16 106/67 90 L 10/21/16 11:18 10/21/16 11:18 10/21/16 11:18 10/21/16 11:18 10/21/16 11:18 Intake & Output 10/20/16 10/21/16 10/22/16 06:59 06:59 06:59 Intake Total 1125 1694 355 Output Total 400 Balance 725 1694 355 Weight 92.3 kg 89.7 kg GENERAL: No acute distress HEENT: Conjunctiva clear, nonicteric, moist mucous membranes, no JVD, midline trachea RESPIRATORY: Clear to auscultation bilaterally, no wheezes, no rhonchi CARDIAC: Regular rate and rhythm, no murmurs/gallops/rubs ABDOMEN: Soft, nondistended, nontender, positive bowel sounds, no rebound, no guarding EXTREMETIES: No edema, cyanosis, clubbing NEUROLOGIC: Alert, oriented to person/place/time, CN's grossly intact, no focal deficits SKIN: No rash, wounds PSYCH: Normal mood, normal affect Results Laboratory Results: 10/21/16 03:54 10/21/16 03:54 10/21/16 10/21/16 03:54 03:54 WBC 13.8 H RBC 4.56 Hgb 13.0 Hct 39.2 MCV 86 MCH 28.5 MCHC 33.2 RDW 16.8 H Plt Count 191 Seg Neutrophils % Not Reportable Lymphocytes % Not Reportable Monocytes % Not Reportable Eosinophils % Not Reportable Basophils % Not Reportable Absolute Neutrophils Not Reportable Absolute Lymphocytes Not Reportable Absolute Monocytes Not Reportable Absolute Eosinophils Not Reportable Absolute Basophils Not Reportable Sodium 138.3 Potassium 4.5 Chloride 99 Carbon Dioxide 29 Anion Gap 10 BUN 46 H Creatinine 1.33 H Est GFR ( Amer) 48 L Est GFR (Non-Af Amer) 39 L Glucose 85 Calcium 9.3 10/18/16 10/19/16 10/20/16 06:21 05:03 04:26 NT-Pro-B Natriuret Pep 2700 H 3340 H 3900 H Impressions: Chest/Abdomen CTA 10/18/16 17:23 IMPRESSION: No acute cardiopulmonary findings. NO PULMONARY EMBOLI. Chronic interstitial changes in mediastinal lymphadenopathy. Chest X-Ray 10/19/16 06:00 IMPRESSION: No significant interval change. Cardiomegaly. No acute consolidations are identified Assessment & Plan - Diagnosis (1) Hypoxia Is this a current diagnosis for this admission?: YesPlan: Now stable on room air. (2) Acute diastolic CHF (congestive heart failure) Is this a current diagnosis for this admission?: YesPlan: Echocardiogram from 08/27/2016 showed left ventricular diastolic dysfunction, normal systolic function, moderate MR, mild to moderate pulmonary hypertension. Clinically patient is much improved. Continue Lasix 40 mg by mouth daily. Continue Coreg 3.125 mg twice daily. Patient is followed by Dr. Maria of cardiology as outpatient. (3) Asthma Is this a current diagnosis for this admission?: YesPlan: Patient has persistent asthma/COPD exacerbation. Continue Levaquin 750 mg daily (day #3). Continue Symbicort, albuterol, and Singulair. (4) Atrial fibrillation with RVR Is this a current diagnosis for this admission?: YesPlan: Heart rate stable. Continue Cardizem CD 120 mg daily. Continue Eliquis. Patient is followed by Dr. Maria of cardiology as an outpatient. (5) Diabetes mellitus type 2 in obese Is this a current diagnosis for this admission?: YesPlan: Patient was hyperglycemic secondary to steroids. Discontinued systemic steroids. Continue glyburide. Hemoglobin A1c 7.0. Continue sliding scale insulin coverage. (6) Hypothyroidism Qualifiers: Hypothyroidism type: acquired Qualified Code(s): E03.9 - Hypothyroidism, unspecified Is this a current diagnosis for this admission?: YesPlan: Continue Synthroid 125 g daily. TSH normal. (7) HTN (hypertension) Qualifiers: Hypertension type: essential hypertension Qualified Code(s): I10 - Essential (primary) hypertension Is this a current diagnosis for this admission?: YesPlan: Continue to hold valsartan HCT secondary to low blood pressures. Decreased Coreg to 3.125 mg twice daily. Continue Cardizem CD to 120 mg daily. - Time Time Spent with patient: 25-34 minutes Anticipated discharge: Home with Homehealth Within: within 24 hours
[2016-10-21] MEDS: LEVOFLOXACIN 750 MG TABLET PO SCH (17:41)
[2016-10-22] MEDS: IPRATROPIUM/ALBUTEROL 120 PUFF/4 GM MDI IH SCH ×2 (00:42→06:55)
[2016-10-22 06:15] LABS: ABSOLUTE EOSINOPHILS # (AUTO) 0.2 10^3/uL (0.0-0.6); ABSOLUTE LYMPHOCYTES (AUTO) 3.1 10^3/uL (0.5-4.7); ABSOLUTE NEUT (AUTO) 8.8 10^3/uL (1.7-8.2); BASOPHILS % (AUTO) 0.3 % (0-2); EOSINOPHILS % (AUTO) 1.9 % (0-6); HEMOGLOBIN 13.7 g/dL (12.0-15.5); HGB HCT DIFFERENCE 0.1; LYMPHOCYTES % (AUTO) 23.5 % (13-45); MEAN CORPUSCULAR HEMOGLOBIN 28.5 pg (27.0-33.4); MEAN CORPUSCULAR HGB CONC 33.4 g/dL (32.0-36.0); MEAN CORPUSCULAR VOLUME 85 fl (80-97); MONOCYTES % (AUTO) 7.3 % (3-13); RED BLOOD COUNT 4.81 10^6/uL (3.72-5.28); RED CELL DISTRIBUTION WIDTH 16.7 % (11.5-14.0); WHITE BLOOD COUNT 13.2 10^3/uL (4.0-10.5)
[2016-10-22 06:23] LABS: ANION GAP 12 (5-19); BLOOD UREA NITROGEN 39 mg/dL (7-20); CALCIUM 9.1 mg/dL (8.4-10.2); CARBON DIOXIDE 26 mmol/L (22-30); CHLORIDE 98 mmol/L (98-107); CREATININE RESULT 1.14 mg/dL (0.52-1.25); GLUCOSE 121 mg/dL (75-110); POTASSIUM 4.3 mmol/L (3.6-5.0); SODIUM 136.4 mmol/L (137-145)
[2016-10-22] MEDS: CARVEDILOL 3.125 MG TABLET PO SCH (06:54)
[2016-10-22] MEDS: ALBUTEROL SULFATE 0.083% NEB 2.5 MG/3 ML AMPUL NEB PRN (08:03)
[2016-10-22] MEDS: LEVOTHYROXINE SODIUM 0.1 MG TABLET PO SCH (08:25)
[2016-10-22] MEDS: FUROSEMIDE 40 MG TABLET PO SCH (08:25)
[2016-10-22] MEDS: GLYBURIDE 2.5 MG TABLET PO SCH (08:25)
[2016-10-22] MEDS: LEVOTHYROXINE SODIUM 0.025 MG TABLET PO SCH (08:25)
[2016-10-22] MEDS: DILTIAZEM HCL 120 MG CAP.SR.24H PO SCH (10:45)
[2016-10-22] MEDS: APIXABAN 5 MG TABLET PO SCH (10:46)
[2016-10-22] MEDS: FENOFIBRATE NANOCRYSTALLIZED 48 MG TABLET PO SCH (10:46)
[2016-10-22] MEDS: POTASSIUM CHLORIDE 10 MEQ TABLET.SA PO SCH (10:46)
[2016-10-22] MEDS: BUDESONIDE/FORMOTEROL 80-4.5 MCG 60 PUFF/6.9 GM MDI IH SCH (10:46)
[2016-10-22 13:06] VITALS: BP 102/50
--- NOTE | 2016-10-22 16:16 | PDOC DISCHARGE SUMMARY ---
General - Admit/Disc Date/PCP Admission Date/Primary Care Provider: 10/16/16 16:23 Discharge Date: 10/22/16 - Discharge Diagnosis (1) Hypoxia Is this a current diagnosis for this admission?: YesSummary: Patient had initial hypoxia. She was initially placed on oxygen supplementation. She was eventually weaned off. (2) Acute diastolic CHF (congestive heart failure) Is this a current diagnosis for this admission?: YesSummary: Patient was treated for acutely decompensated congestive heart failure due to diastolic dysfunction as noted on echocardiogram from 08/27/2016. She was diuresed with IV Lasix until euvolemic. At this time she was transitioned to Lasix 40 mg by mouth daily. She is on Coreg and doses been decreased to 3.125 mg twice daily secondary to low blood pressure. She is followed by Dr. Maria of cardiology as an outpatient. And she will need to follow-up with Dr. Maria after discharge. (3) Asthma Is this a current diagnosis for this admission?: YesSummary: Patient has known asthma. She had an asthma exacerbation/acute bronchitis for which she has been on Symbicort, albuterol, and Singulair. She is on Levaquin day #4 of 7 at time of discharge. (4) Atrial fibrillation with RVR Is this a current diagnosis for this admission?: YesSummary: Patient's Cardizem CD was decreased from 180 mg daily to 120 mg daily secondary to hypotension. Coreg was decreased from 6.25 mg twice daily to 3.125 mg twice daily secondary to hypotension. Patient is on Eliquis for stroke prevention. Admission history and physical states that patient was on warfarin as an outpatient but this is incorrect. Patient was changed from warfarin to Eliquis by cardiology just prior to this admission. (5) Diabetes mellitus type 2 in obese Is this a current diagnosis for this admission?: YesSummary: Patient was covered with sliding scale insulin in the hospital. Her hemoglobin A1c is 7.0 on current dose of glyburide. (6) Hypothyroidism Is this a current diagnosis for this admission?: YesSummary: TSH normal on current dose of Synthroid 125 g daily. (7) HTN (hypertension) Is this a current diagnosis for this admission?: YesSummary: Patient was noted to have hypotension and Cardizem and Coreg were decreased as result. Valsartan HCT was discontinued. - Additional Information Resuscitation Status: Full Code Discharge Diet: Cardiac, Diabetic Discharge Activity: Activity As Tolerated, Balance Activity w/Rest, Weigh Daily Home Medications: Fenofibrate Nanocrystallized [Fenofibrate] 48 mg PO DAILY #30 tablet 10/14/14 Glyburide [Diabeta 2.5 mg Tablet] 2.5 mg PO DAILY #30 tablet 10/14/14 Mometasone Furoate [Nasonex] 17 gm NS DAILY #1 spray.pump 10/14/14 Montelukast Sodium [Singulair 10 mg Tablet] 10 mg PO QHS #30 tablet 10/14/14 Potassium Chloride 10 meq PO DAILY #30 capsule.er 10/14/14 Albuterol Sulfate [Ventolin Hfa] 1 - 2 puff IH Q4 PRN 02/09/15 Acetaminophen [Tylenol 325 mg Tablet] 650 mg PO Q4HP PRN tablet 10/22/16 Apixaban [Eliquis 5 mg Tablet] 5 mg PO BID tablet 10/22/16 Budesonide/Formoterol Fumarate [Symbicort HFA 80-4.5 mcg Inhaler 6.9 gm] 2 puff IH Q12 inhaler 10/22/16 Carvedilol [Coreg 3.125 mg Tablet] 3.125 mg PO Q12A #60 tablet 10/22/16 Diltiazem HCl [Cardizem Cd 120 mg Capsule] 120 mg PO DAILY #30 cap.sr.24h Furosemide [Lasix 40 mg Tablet] 40 mg PO QAM #30 tablet 10/22/16 Ipratropium/Albuterol Sulfate [Combivent Respimat 4 gm Mdi] 1 puff IH Q6 #1 aer.w.adap 10/22/16 Levofloxacin [Levaquin 750 mg Tablet] 750 mg PO DAILY@1600 #5 tablet 10/22/16 Levothyroxine Sodium 125 mcg PO DAILY #30 tablet 10/22/16 History of Present Illness Patient complains of: Shortness of breath History of Present Illness: NELSON CUNNINGHAM is a 71 year old female with past medical history of atrial fibrillation, COPD, CHF/LVDD, CKD 3, DM presents to the emergency department with several week history of increasing shortness of breath, and orthopnea. She denied chest pain. Hospital Course Hospital Course: See above Physical Exam Vital Signs: Temp Pulse Resp BP Pulse Ox 97.7 F 70 18 102/50 L 95 10/22/16 13:04 10/22/16 13:04 10/22/16 13:04 10/22/16 13:04 10/22/16 13:04 Intake & Output 10/21/16 10/22/16 10/23/16 06:59 06:59 06:59 Intake Total 1694 1073 Balance 1694 1073 Weight 89.7 kg 89.7 kg GENERAL: No acute distress HEENT: Conjunctiva clear, nonicteric, moist mucous membranes, no JVD, midline trachea RESPIRATORY: Clear to auscultation bilaterally, no wheezes, no rhonchi CARDIAC: Regular rate and rhythm, no murmurs/gallops/rubs ABDOMEN: Soft, nondistended, nontender, positive bowel sounds, no rebound, no guarding EXTREMETIES: No edema, cyanosis, clubbing NEUROLOGIC: Alert, oriented to person/place/time, CN's grossly intact, no focal deficits SKIN: No rash, wounds PSYCH: Normal mood, normal affect Results Laboratory Results: 10/22/16 05:02 10/22/16 05:02 10/22/16 10/22/16 05:02 05:02 WBC 13.2 H RBC 4.81 Hgb 13.7 Hct 41.0 MCV 85 MCH 28.5 MCHC 33.4 RDW 16.7 H Plt Count 199 Seg Neutrophils % 67.0 Lymphocytes % 23.5 Monocytes % 7.3 Eosinophils % 1.9 Basophils % 0.3 Absolute Neutrophils 8.8 H Absolute Lymphocytes 3.1 Absolute Monocytes 1.0 Absolute Eosinophils 0.2 Absolute Basophils 0.0 Sodium 136.4 L Potassium 4.3 Chloride 98 Carbon Dioxide 26 Anion Gap 12 BUN 39 H Creatinine 1.14 Est GFR ( Amer) 57 L Est GFR (Non-Af Amer) 47 L Glucose 121 H Calcium 9.1 10/18/16 10/19/16 10/20/16 06:21 05:03 04:26 NT-Pro-B Natriuret Pep 2700 H 3340 H 3900 H Impressions: Chest/Abdomen CTA 10/18/16 17:23 IMPRESSION: No acute cardiopulmonary findings. NO PULMONARY EMBOLI. Chronic interstitial changes in mediastinal lymphadenopathy. Chest X-Ray 10/19/16 06:00 IMPRESSION: No significant interval change. Cardiomegaly. No acute consolidations are identified Qualifiers PATEINT BEING DISCHARGED WITH ANY OF THE FOLLOWING DIAGNOSIS?: No Plan Discharge Plan: Follow-up with primary care provider. Follow-up with cardiology. Home health services will be initiated for CHF and medication management. Time Spent: Less than 30 Minutes
== END 2016-10-22 13:25 | disposition home health service (06) | DRG 291 ==
LOC: ER 13:19 → EH 16:23 → UNDOADMIN 16:56 → 3W 22:30
PROVIDERS: ADMIT Family Medicine; ATTEND Family Medicine
DX: I13.0 Hypertensive heart and chronic kidney disease with heart failure and stage 1 through stage 4 chronic kidney disease, or unspecified chronic kidney disease (principal); I50.33 Acute on chronic diastolic (congestive) heart failure; J44.1 Chronic obstructive pulmonary disease with (acute) exacerbation; E11.22 Type 2 diabetes mellitus with diabetic chronic kidney disease; N18.3 Chronic kidney disease, stage 3 (moderate); I48.2 Chronic atrial fibrillation; J45.909 Unspecified asthma, uncomplicated; E78.00 Pure hypercholesterolemia, unspecified; K21.9 Gastro-esophageal reflux disease without esophagitis; E03.9 Hypothyroidism, unspecified; R09.02 Hypoxemia
CPT/HCPCS: 36415; 71010; 71275; 80048; 80053; 81001; 82550; 82553; 82803; 82962; 83036; 83605; 83735; 83880; 84443; 84484; 85025; 85610; 87040; 87086; 87186; 93005; 93010; 94640; 96361; 96374; 99285; J1815; J1940; J1956; J2920; J2930; J3490; J7030; J7620

== ENCOUNTER → 2016-11-22 | Outpatient (CLI) | payer MEDICARE, MEDICAID | LOC: RAD 09:06 | PROVIDERS: ATTEND Internal Medicine Nephrology | DX: I12.9 Hypertensive chronic kidney disease with stage 1 through stage 4 chronic kidney disease, or unspecified chronic kidney disease (principal); N18.3 Chronic kidney disease, stage 3 (moderate) | CPT/HCPCS: 76770 ==

== ENCOUNTER → 2016-12-03 | Outpatient (CLI) | payer MEDICARE, MEDICAID ==
[2016-12-03 11:11] LABS: ABSOLUTE BASOPHILS # (AUTO) 0.1 10^3/uL (0.0-0.2); ABSOLUTE EOSINOPHILS # (AUTO) 0.1 10^3/uL (0.0-0.6); ABSOLUTE LYMPHOCYTES (AUTO) 1.8 10^3/uL (0.5-4.7); ABSOLUTE MONOCYTES (AUTO) 0.9 10^3/uL (0.1-1.4); BASOPHILS % (AUTO) 0.8 % (0-2); EOSINOPHILS % (AUTO) 1.6 % (0-6); HEMATOCRIT 41.7 % (36.0-47.0); HEMOGLOBIN 13.8 g/dL (12.0-15.5); HGB HCT DIFFERENCE -0.3; LYMPHOCYTES % (AUTO) 20.4 % (13-45); MEAN CORPUSCULAR HEMOGLOBIN 28.9 pg (27.0-33.4); MEAN CORPUSCULAR VOLUME 87 fl (80-97); MONOCYTES % (AUTO) 9.8 % (3-13); RED BLOOD COUNT 4.77 10^6/uL (3.72-5.28); RED CELL DISTRIBUTION WIDTH 16.1 % (11.5-14.0); SEGMENTED NEUTROPHILS % (AUTO) 67.4 % (42-78); WHITE BLOOD COUNT 8.9 10^3/uL (4.0-10.5)
[2016-12-03 11:12] LABS: APPEARANCE,URINE CLEAR; BILIRUBIN,URINE NEGATIVE (NEGATIVE); GLUCOSE, URINE NEGATIVE (NEGATIVE); KETONES,URINE NEGATIVE (NEGATIVE); LEUKOCYTE ESTERASE,URINE TRACE (NEGATIVE); NITRITE,URINE NEGATIVE (NEGATIVE); PROTEIN,URINE NEGATIVE (NEGATIVE); URINE SPECIFIC GRAVITY 1.005; UROBILINOGEN,URINE NEGATIVE mg/dL (<2.0)
[2016-12-03 11:36] LABS: ALBUMIN 4.2 g/dL (3.5-5.0); ANION GAP 9 (5-19); BLOOD UREA NITROGEN 24 mg/dL (7-20); CALCIUM 10.2 mg/dL (8.4-10.2); CARBON DIOXIDE 29 mmol/L (22-30); CHLORIDE 103 mmol/L (98-107); CREATININE RESULT 1.06 mg/dL (0.52-1.25); GLUCOSE 74 mg/dL (75-110); PHOSPHORUS 4.6 mg/dL (2.5-4.5); POTASSIUM 4.6 mmol/L (3.6-5.0); SODIUM 140.6 mmol/L (137-145)
[2016-12-04 09:32] LABS: VITAMIN D 25-HYDROXY 34.2 ng/mL (30.0-100.0)
[2016-12-04 13:38] LABS: CREATININE URINE 31.8 mg/dL (Not Estab.); MICROALBUMIN URINE 4.4 ug/mL (Not Estab.)
== END ==
LOC: OD 10:11
PROVIDERS: ATTEND Internal Medicine Nephrology
DX: I12.9 Hypertensive chronic kidney disease with stage 1 through stage 4 chronic kidney disease, or unspecified chronic kidney disease (principal); N18.3 Chronic kidney disease, stage 3 (moderate); E11.9 Type 2 diabetes mellitus without complications
CPT/HCPCS: 36415; 80048; 81001; 82040; 82043; 82306; 82570; 83970; 84100; 85025

== ENCOUNTER → 2017-01-10 | Outpatient (CLI) | payer MEDICAID, MEDICARE | LOC: WI 08:59 | PROVIDERS: ATTEND Physician Assistant | DX: M81.0 Age-related osteoporosis without current pathological fracture (principal) | CPT/HCPCS: 77080 ==

== ENCOUNTER → 2017-02-26 | Outpatient (CLI) | payer MEDICARE | LOC: RAD 12:58 | PROVIDERS: ATTEND Nurse Practitioner Family | DX: R49.1 Aphonia (principal) | CPT/HCPCS: 70491 ==

== ENCOUNTER → 2017-03-05 | Outpatient (CLI) | payer MEDICARE | LOC: RAD 09:13 | PROVIDERS: ATTEND Nurse Practitioner Family | DX: J90 Pleural effusion, not elsewhere classified (principal) | CPT/HCPCS: 71250 ==

== ENCOUNTER → 2017-03-11 | Outpatient (CLI) | payer MEDICARE ==
--- NOTE | 2017-03-11 15:52 | RADIOLOGY REPORT (SQ) ---
EXAM DESCRIPTION: CHEST PA/LAT COMPLETED DATE/TIME: 03/11/2017 3:41 pm REASON FOR STUDY: SHORTNESS OF BREATH COMPARISON: 10/19/2016 EXAM PARAMETERS: NUMBER OF VIEWS: two views TECHNIQUE: Digital Frontal and Lateral radiographic views of the chest acquired. RADIATION DOSE: NA LIMITATIONS: none FINDINGS: LUNGS AND PLEURA: Interstitial markings are prominent but unchanged. MEDIASTINUM AND HILAR STRUCTURES: No masses or contour abnormalities. HEART AND VASCULAR STRUCTURES: Heart is enlarged. There is central vascular prominence. BONES: No acute findings. HARDWARE: None in the chest. OTHER: No other significant finding. IMPRESSION: Cardiomegaly and probable chronic interstitial edema. There has been no significant sukh nge from September 2016. TECHNICAL DOCUMENTATION: JOB ID: [id number] [employer]- All Rights Reserved
== END ==
LOC: RAD 15:29
PROVIDERS: ATTEND Internal Medicine Medical Oncology
DX: R06.02 Shortness of breath (principal)
CPT/HCPCS: 71020

== ENCOUNTER → 2017-03-24 | Outpatient (CLI) | payer MEDICARE ==
--- NOTE | 2017-03-25 10:14 | RADIOLOGY REPORT (SQ) ---
EXAM DESCRIPTION: PET CT SKULL/THIGH COMPLETED DATE/TIME: 03/24/2017 10:15 pm REASON FOR STUDY: LYMPHADENOPATHY R59.1 GENERALIZED ENLARGED LYMPH NODES COMPARISON: CT soft tissue neck 02/26/2017 CT chest 03/05/2017, 09/28/2016 RADIONUCLIDE AND DOSE: 10.7 mCi F18 FDG The route of agent administration: Intravenous FASTING BLOOD SUGAR: 100 mg/dl CONTRAST TYPE AND DOSE: No CT contrast given. TECHNIQUE: Blood glucose level was verified. Above dose of FDG was injected intravenously. 2-D seg mented attenuation correction images were obtained from the base of the skull to the midthighs. Nonc ontrast CT images were obtained for attenuation correction and fusion with emission images. CT image s were performed without oral or intravenous contrast and are not sensitive for parenchymal lesions. A series of overlapping emission PET images were obtained. Images reviewed and manipulated at [facility] work station by the radiologist. Images stored on PACS. LIMITATIONS: None. FINDINGS: HEAD AND NECK: There is diffuse activity at the tongue base without a discrete mass. Righ tward tongue base SUV 6.6, left tongue base SUV 4.9. There is minimal increased uptake along the right sublingual gland with SUV 4.4. The thyroid gland is normal size with diffuse increased metabolic uptake, right lobe thyroid SUV 4.2, left lobe thyroid SUV 4.1. In the right posterior triangle, on axial image 35, a 5 to 6 mm short axis lymph node is present with SUV 1.9. CHEST: There is mediastinal adenopathy as follows: 2 cm short axis prevascular para-aortic lymph node on image 71 SUV 2.2 1.2 cm short axis prevascular lymph node image 70 SUV 1.9 1.2 cm short axis pretracheal lymph node axial image 72 SUV 2.3 2 x 1.7 cm sub- carinal lymph node axial image 86 SUV 3.5 There is some ill-defined increased uptake at the right hilum with SUV 3.8. A discrete lymph node di fficult to measure because of lack of IV contrast. There is diffuse increased interstitial markings throughout the posterior half of the right upper lob e marginating the major fissure. This is unchanged from 03/05/2017 and 10/18/2016. There is SUV of 1 .1 in this lung parenchyma, question chronic pneumonitis. No discrete pulmonary nodules. No pleural effusion. No pneumothorax. ABDOMEN AND PELVIS: No areas of abnormal metabolic activity in the abdomen or pelvis. Expected physi ologic activity is present in the genitourinary system and bowel. PROXIMAL LOWER EXTREMITIES: No areas of abnormal metabolic activity in the soft tissues of the lower extremities. BONES: No areas of abnormal metabolic activity in the bony structures ADDITIONAL CT FINDINGS: Calcified gallstones. Scattered colonic diverticuli without CT signs of acut e diverticulitis. Post hysterectomy. OTHER: Blood pool activity SUV 2.1, liver activity SUV 3.2 IMPRESSION: Mediastinal adenopathy. Aside from the right hilar and subcarinal lymph nodes, metaboli c activity is near baseline. Increased interstitial markings in the posterior right upper lobe with the right hilar increased meta bolic activity. Question chronic pneumonitis with reactive right hilar lymph node. Tongue base activity likely lymphoid tissue. Normal size thyroid with mild diffuse increased activity, non specific TECHNICAL DOCUMENTATION: JOB ID: [id number] [employer]- All Rights Reserved
== END ==
LOC: RAD 19:28
PROVIDERS: ATTEND Internal Medicine Medical Oncology
DX: Z01.812 Encounter for preprocedural laboratory examination (principal); R59.1 Generalized enlarged lymph nodes
CPT/HCPCS: 78815; A9552

== ENCOUNTER → 2017-03-27 | Outpatient (CLI) | payer MEDICARE ==
--- NOTE | 2017-03-27 11:41 | RADIOLOGY REPORT (SQ) ---
EXAM DESCRIPTION: CT CHEST WITH COMPLETED DATE/TIME: 03/27/2017 10:43 am REASON FOR STUDY: MEDIASTINAL MASS (J98.59) Z12.31 ENCNTR SCREEN MAMMOGRAM FOR MALIGNANT NEOPLASM O F XIN J98.59 OTHER DISEASES OF MEDIASTINUM, NOT ELSEWHERE CLASSIFI COMPARISON: 03/05/2017 TECHNIQUE: CT scan of the chest performed using helical scanning technique with dynamic intravenous contrast injection. Images reviewed with lung, soft tissue and bone windows. Reconstructed coronal and sagittal MPR images reviewed. All images stored on PACS. All CT scanners at this facility use dose modulation, iterative reconstruction, and/or weight based d osing when appropriate to reduce radiation dose to as low as reasonably achievable (ALARA). [facility]: Dose Right [facility]: CareDose [facility]: Dose Right [facility]: Teradose 4D [facility]: Smart Technologies CONTRAST TYPE AND DOSE: 78mL Isovue 370 RENAL FUNCTION: BUN 22, creatinine 0.9 RADIATION DOSE: 13.87 mGy. LIMITATIONS: None. FINDINGS: LUNGS AND PLEURA: There is a small right pleural effusion. Interstitial markings are prom inent but grossly unchanged. There is some superimposed ground-glass opacities consistent with atele ctasis on today's exam. HILAR AND MEDIASTINAL STRUCTURES: The mediastinal adenopathy is grossly stable. The largest node in the left prevascular space measures approximately 2.6 cm. HEART AND VASCULAR STRUCTURES: No aneurysm or dissection. No central pulmonary emboli. No pericardi al effusion. HARDWARE: None in the chest. UPPER ABDOMEN: No significant findings. Limited exam. THYROID AND OTHER SOFT TISSUES: No masses. No adenopathy. BONES: No significant finding. OTHER: No other significant finding. IMPRESSION: 1. Small right pleural effusion. 2. Persistent prominent interstitial markings stable from prior study. There is superimposed ground -glass opacity day consistent with atelectasis. 3. Stable mediastinal adenopathy. This still could be reactive or neoplastic. TECHNICAL DOCUMENTATION: JOB ID: [id number] Quality ID # [id number]: Final reports with documentation of one or more dose reduction techniques (e.g., Au tomated exposure control, adjustment of the mA and/or kV according to patient size, use of iterative reconstruction technique) 2010 [employer]- All Rights Reserved
--- NOTE | 2017-03-27 11:54 | WOMENS IMAGING REPORT ---
EXAM DESCRIPTION: 3D SCREENING MAMMO BILAT COMPLETED DATE/TIME: 03/27/2017 11:17 am REASON FOR STUDY: Z12.31, ROUTINE SCREENING MAMMO Z12.31 ENCNTR SCREEN MAMMOGRAM FOR MALIGNANT NEOP LASM OF XIN J98.59 OTHER DISEASES OF MEDIASTINUM, NOT ELSEWHERE CLASSIFI COMPARISON: 2008, 2013 TECHNIQUE: Standard craniocaudal and mediolateral oblique views of each breast recorded using digita l acquisition and breast tomosynthesis. LIMITATIONS: None. FINDINGS: No masses, calcifications or architectural distortion. No areas of suspicion. Read with the assistance of CAD. .[facility] - R2 Cenova Version 1.3 .[facility] - R2 Cenova Version 1.3 .[facility] - R2 Cenova Version 2.4 .[facility] [place] - R2 Cenova Version 2.4 .[facility] - R2 Filament Maker Version 9.2 IMPRESSION: NORMAL MAMMOGRAM. BIRADS 1. BREAST DENSITY: b. There are scattered areas of fibroglandular density. BIRAD: 1 NEGATIVE RECOMMENDATION: ROUTINE SCREENING COMMENT: The patient has been notified of the results by letter per SA requirements. Additional no tification policies are in place for contacting patient with suspicious or incomplete findings. Quality ID #[id number]: The [employer] recommends an annual screening mammogram for women aged 40 years or over. This facility utilizes a reminder system to ensure that all patients receive reminder letters, and/or direct phone calls for appointments. This includes reminders for routine scr eening mammograms, diagnostic mammograms, or other Breast Imaging Interventions when appropriate. Th is patient will be placed in the appropriate reminder system. The [employer] (ACR) has developed recommendations for screening MRI of the breast s in certain patient populations, to be used in conjunction with mammography. Breast MRI surveillanc e may be appropriate for women with more than 20% lifetime risk of developing breast cancer as deter mined by genetic testing, significant family history of the disease, or history of mantle radiation f or Hodgkins Disease. ACR Practice Guidelines 2008. DBT Technology DBT is a type of tomographic mammography. With conventional mammography, overlapping breast tissue ma y make lesions difficult to detect, even with good compression. DBT uses an x-ray tube that rotates a round the breast, taking images at different angles. These images are then combined to create thin sl ices of the breast that the radiologist can view as a 3D reconstruction. The [employer] unit can perform full-field digital mammograms (2D imaging); or DBT (3D imaging); or both, in a combination mode that quickly performs both the mammogram and the tomosynthesis scan while the breast is still compressed. PQRS 6045F: Fluoroscopic imaging is not utilized for breast tomosynthesis. TECHNICAL DOCUMENTATION: FINDING NUMBER: (1) ASSESSMENT: (1) JOB ID: [id number] [employer]- All Rights Reserved
== END ==
LOC: WI 09:31
PROVIDERS: ATTEND Physician Assistant
DX: Z12.31 Encounter for screening mammogram for malignant neoplasm of breast (principal); J98.59 Other diseases of mediastinum, not elsewhere classified
CPT/HCPCS: 71260; 77063; G0202; 77067

== ENCOUNTER 2017-05-10 11:26 | Emergency (ER) | payer MEDICARE, MEDICAID ==
--- NOTE | 2017-05-10 11:48 | ER Document Report ---
ED Respiratory Problem - General Chief Complaint: Shortness Of Breath Stated Complaint: RESPIRATORY DISTRESS Time Seen by Provider: 05/10/17 11:32 Notes: Patient is here to be evaluated for difficulty breathing that began last night. Patient states that she was unable to lay flat in the bed last night. She says that she actually started with a nonproductive cough yesterday. Then the difficulty breathing began last night and is worsened today. Patient has a history of asthma and she has been told she has COPD, although she has never smoked. She is maintained on home oxygen at 2 L. EMS arrived to find the patient having some difficulty breathing and her oxygen sats in the low 90s and increased her O2 to 4 L. Patient says she has not been sick recently. No fevers or chills. No vomiting or diarrhea. No swelling of the legs. Patient has a history of atrial fibrillation and she says that she has been told in the past she had congestive heart failure. She is scheduled to have valvular heart surgery in the near future because her valves are not working well. PMH: Hysterectomy, hypertension, NIDDM, heart disease. Thyroid condition. TRAVEL OUTSIDE OF THE [place] IN LAST 30 DAYS: No - Related Data Allergies/Adverse Reactions: No Known Allergies Allergy (Verified 10/09/14 09:34) Past Medical History - Social History Smoking Status: Never Smoker Family History: Reviewed & Not Pertinent, DM, Hypertension, Other - Past Medical History Cardiac Medical History: Reports: Hx Atrial Fibrillation, Hx Congestive Heart Failure, Hx Hypercholesterolemia, Hx Hypertension Pulmonary Medical History: Reports: Hx Asthma, Hx COPD Endocrine Medical History: Reports: Hx Diabetes Mellitus Type 2, Hx Hypothyroidism GI Medical History: Reports: Hx Gastroesophageal Reflux Disease, Hx Hiatal Hernia Musculoskeltal Medical History: Reports Hx Arthritis Past Surgical History: Reports: Hx Hysterectomy, Hx Tonsillectomy - Immunizations Hx Diphtheria, Pertussis, Tetanus Vaccination: Yes Hx Pneumococcal Vaccination: 09/20/11 Review of Systems - Review of Systems Notes: REVIEW OF SYSTEMS: CONSTITUTIONAL : Denies fever. EENT: Denies eye, ear, nose or mouth or throat pain or other symptoms. CARDIOVASCULAR: Denies chest pain. RESPIRATORY: See HPI . GASTROINTESTINAL: Denies abdominal pain or nausea, vomiting, or diarrhea. GENITOURINARY: Denies difficulty or painful urinating, urinary frequency, blood in urine. MUSCULOSKELETAL: Denies back or neck pain. Denies joint pain or swelling. SKIN: Denies rash or skin lesions. NEUROLOGICAL: Denies LOC or altered mental status. Denies headache. Denies sensory loss or motor deficits. ALL OTHER SYSTEMS REVIEWED AND NEGATIVE. Physical Exam - Vital signs Vitals: Temp Pulse Resp BP Pulse Ox 98.4 F 92 22 H 132/73 H 95 05/10/17 11:35 05/10/17 11:35 05/10/17 11:35 05/10/17 11:35 05/10/17 11:35 Interpretation: Normal, Other - Notes Notes: PHYSICAL EXAMINATION: GENERAL: Well-appearing, in no acute distress. Slightly tachypneic. HEAD: Atraumatic, normocephalic. EYES: Pupils equal round and reactive to light, extraocular movements intact. ENT: oropharynx clear without exudates. Moist mucous membranes. NECK: Normal range of motion, supple. LUNGS: Breath sounds with fine basilar rales posteriorly. HEART: Irregular rate and rhythm without murmurs. ABDOMEN: Soft, nontender. No guarding or rebound. BACK: No tenderness throughout entire back. EXTREMITIES: Normal range of motion without pain. Trace to +1 pitting edema pretibial bilaterally. NEUROLOGICAL: Normal speech, normal gait. Normal sensory, motor, and reflex exams. Awake, alert, and oriented x3. Seems hard of hearing. PSYCH: Normal mood, normal affect. SKIN: Warm, dry, no rashes. Course - Re-evaluation Re-evalutation: 05/10/17 12:[address] Trevino in [place] who will accept the patient in transfer there. He recommends that we give patient 40 mg of Lasix IV. Further information is that this patient was chest in the hospital in [place] earlier this week and underwent a cardiac cath and showed no coronary artery disease. She has severe mitral stenosis and severe mitral regurgitation. 05/10/17 15:14 Patient has remained stable throughout her stay in the department. Transport is here to take her to [place]. - Vital Signs Vital signs: Temp Pulse Resp BP Pulse Ox 98.4 F 92 18 114/60 97 05/10/17 11:35 05/10/17 11:35 05/10/17 13:01 05/10/17 12:01 05/10/17 13:01 - Laboratory Result Diagrams: 05/10/17 11:51 05/10/17 11:51 Laboratory results interpreted by me: 05/10/17 05/10/17 05/10/17 11:51 11:51 11:51 Hgb 11.9 L RDW 16.1 H Carbon Dioxide 31 H Est GFR (Non-Af Amer) 55 L NT-Pro-B Natriuret Pep 1770 H - Diagnostic Test Radiology results interpreted by me: 05/10/17 15:16 Chest x-ray shows cardiomegaly and mild vascular congestion consistent with congestive heart failure. - EKG Interpretation by Me Rate: Normal Rhythm: A.Fib When compared to previous EKG there are: No significant change Critical Care Note - Critical Care Note Total time excluding time spent on procedures (mins): 40 Discharge - Discharge Clinical Impression: Valvular heart disease, Atrial fibrillation Congestive heart failure Qualifiers: Congestive heart failure type: unspecified congestive heart failure type Congestive heart failure chronicity: acute on chronic Qualified Code(s): I50.9 - Heart failure, unspecified Condition: Fair Disposition: [facility] Referrals: JESSIE RODRIGUEZ PAEliC [Primary Care Provider] - Follow up as needed
--- NOTE | 2017-05-10 12:00 | RADIOLOGY REPORT (SQ) ---
EXAM DESCRIPTION: CHEST SINGLE VIEW COMPLETED DATE/TIME: 05/10/2017 11:48 am REASON FOR STUDY: MARY COMPARISON: Chest CT scan dated March 2017 EXAM PARAMETERS: NUMBER OF VIEWS: One view. TECHNIQUE: Single frontal radiographic view of the chest acquired. RADIATION DOSE: NA LIMITATIONS: Patient has made a shallow inspiration. FINDINGS: LUNGS AND PLEURA: Linear density is identified in the right mid lung field which could rep resent atelectatic changes or small amount of fluid in the minor fissure. Remaining lung talbert are clear. Prominent interstitial changes are again identified. MEDIASTINUM AND HILAR STRUCTURES: No masses. Contour normal. HEART AND VASCULAR STRUCTURES: Cardiac silhouette is enlarged. There is mild pulmonary vascular dunia estion BONES: No acute findings. HARDWARE: None in the chest. OTHER: No other significant finding. IMPRESSION: Cardiomegaly with mild pulmonary vascular congestion. Linear density in the right mid l robert feel which could represent atelectatic changes or small amount of fluid in the minor fissure. Ot her findings as noted above TECHNICAL DOCUMENTATION: JOB ID: [id number]
[2017-05-10 12:09] LABS: ABSOLUTE BASOPHILS # (AUTO) 0.1 10^3/uL (0.0-0.2); ABSOLUTE EOSINOPHILS # (AUTO) 0.2 10^3/uL (0.0-0.6); ABSOLUTE LYMPHOCYTES (AUTO) 1.3 10^3/uL (0.5-4.7); ABSOLUTE MONOCYTES (AUTO) 0.7 10^3/uL (0.1-1.4); ABSOLUTE NEUT (AUTO) 6.4 10^3/uL (1.7-8.2); BASOPHILS % (AUTO) 0.9 % (0-2); EOSINOPHILS % (AUTO) 2.2 % (0-6); HEMATOCRIT 36.8 % (36.0-47.0); HEMOGLOBIN 11.9 g/dL (12.0-15.5); HGB HCT DIFFERENCE -1.1; LYMPHOCYTES % (AUTO) 15.4 % (13-45); MEAN CORPUSCULAR HEMOGLOBIN 27.8 pg (27.0-33.4); MEAN CORPUSCULAR HGB CONC 32.4 g/dL (32.0-36.0); MEAN CORPUSCULAR VOLUME 86 fl (80-97); RED CELL DISTRIBUTION WIDTH 16.1 % (11.5-14.0); SEGMENTED NEUTROPHILS % (AUTO) 73.5 % (42-78); WHITE BLOOD COUNT 8.7 10^3/uL (4.0-10.5)
[2017-05-10 12:19] LABS: ALANINE AMINOTRANSFERASE 30 U/L (9-52); ALBUMIN 4.1 g/dL (3.5-5.0); ALKALINE PHOSPHATASE 53 U/L (38-126); ANION GAP 8 (5-19); ASPARTATE AMINO TRANSFERASE 15 U/L (14-36); BILIRUBIN,DIRECT 0.3 mg/dL (0.0-0.4); BILIRUBIN,TOTAL 0.8 mg/dL (0.2-1.3); BLOOD UREA NITROGEN 18 mg/dL (7-20); CARBON DIOXIDE 31 mmol/L (22-30); CHLORIDE 102 mmol/L (98-107); CREATININE RESULT 0.99 mg/dL (0.52-1.25); GLUCOSE 89 mg/dL (75-110); LIPASE 23.9 U/L (23-300); POTASSIUM 4.7 mmol/L (3.6-5.0); SODIUM 141.1 mmol/L (137-145); TOTAL PROTEIN 7.2 g/dL (6.3-8.2)
[2017-05-10 12:32] LABS: CREATINE KINASE MB 0.42 ng/mL (<4.55)
[2017-05-10 12:35] LABS: TROPONIN I < 0.012 ng/mL
[2017-05-10] MEDS ORDERED: FUROSEMIDE INJ/PF 40 MG/4 ML SDV IV ONE (12:40)
[2017-05-10 13:08] LABS: APPEARANCE,URINE CLEAR; BILIRUBIN,URINE NEGATIVE (NEGATIVE); GLUCOSE, URINE NEGATIVE (NEGATIVE); KETONES,URINE NEGATIVE (NEGATIVE); LEUKOCYTE ESTERASE,URINE NEGATIVE (NEGATIVE); NITRITE,URINE NEGATIVE (NEGATIVE); PROTEIN,URINE NEGATIVE (NEGATIVE); URINE SPECIFIC GRAVITY 1.003; UROBILINOGEN,URINE NEGATIVE mg/dL (<2.0)
[2017-05-10 15:29] VITALS: BP 123/75
--- NOTE | 2017-05-12 13:38 | EKG REPORT ---
SEVERITY:- ABNORMAL ECG - ATRIAL FIBRILLATION, V-RATE 72-146 : Confirmed by: Reina Fagan MD 12-May-2017 13:37:23
== END 2017-05-10 15:29 | disposition short-term general hospital (02) ==
LOC: ER 11:26
DX: I38 Endocarditis, valve unspecified (principal); I48.91 Unspecified atrial fibrillation; I50.9 Heart failure, unspecified; R06.02 Shortness of breath; I11.0 Hypertensive heart disease with heart failure; J45.909 Unspecified asthma, uncomplicated; J44.9 Chronic obstructive pulmonary disease, unspecified; E11.9 Type 2 diabetes mellitus without complications; E78.00 Pure hypercholesterolemia, unspecified; E03.9 Hypothyroidism, unspecified; Z90.710 Acquired absence of both cervix and uterus; Z99.81 Dependence on supplemental oxygen
CPT/HCPCS: 93005; 99291; 96374; 36415; 82553; 83690; 85025; 80053; 81001; 84484; 83880; 71010; 93010; J1940